=== PATIENT | female | born 1940 | race Caucasian/White ===

== ENCOUNTER 2024-12-05 11:32 | Emergency (ER) | payer MEDICARE, BC ==
[2024-12-05] MEDS ORDERED: Sodium Chloride 0.9% 10 ML Syringe FLUSH PRN (11:55)
[2024-12-05 12:00] LABS: BASOPHILS ABSOLUTE AUTO 0.03 K/uL (0.00-0.10); BASOPHILS PERCENT AUTO 0.5 % (0.1-1.3); EOSINOPHILS ABSOLUTE AUTO 0.22 K/uL (0.00-0.40); EOSINOPHILS PERCENT AUTO 3.5 % (0.0-5.4); HEMATOCRIT 40.2 % (34.3-46.0); HEMOGLOBIN 13.4 g/dL (11.2-15.5); IMMATURE GRAN ABSOLUTE AUTO 0.04 K/uL (0.00-0.23); IMMATURE GRAN PERCENT AUTO 0.6 % (0.0-0.7); LYMPHOCYTES ABSOLUTE AUTO 2.11 K/uL (0.8-3.3); LYMPHOCYTES PERCENT AUTO 33.2 % (11.4-47.7); MEAN CORPUSCULAR HEMOGLOBIN 30.6 pg (31.6-35.5); MEAN CORPUSCULAR HGB CONC 33.3 g/dL (31.6-35.5); MEAN CORPUSCULAR VOLUME 91.8 fL (81.4-99.0); MONOCYTES ABSOLUTE AUTO 0.67 K/uL (0.20-0.90); MONOCYTES PERCENT AUTO 10.5 % (3.3-12.6); NEUTROPHILS ABSOLUTE AUTO 3.29 K/uL (1.0-7.6); NEUTROPHILS PERCENT AUTO 51.7 % (40.0-78.1); PLATELET COUNT,PLT 190 K/uL (130-375); RED BLOOD CELL COUNT 4.38 M/uL (3.77-5.24); WHITE BLOOD CELL COUNT,WBC 6.4 K/uL (3.2-11.0)
[2024-12-05 12:24] LABS: ANION GAP 10.5 mmol/L (5.0-14.0); CALCIUM 9.5 mg/dL (8.5-10.1); CREATININE 0.6 mg/dL (0.6-1.0); EST CRCL DRUG DOSING (CG) 56.19 mL/min; TROPONIN I HIGH SENSITIVITY 10.5 pg/mL (<=60.3)
[2024-12-05] MEDS: Aspirin 81 MG Tab.Chew PO ONE (12:41)
[2024-12-05] MEDS: Nitroglycerin 0.4 MG Tab.SL SL PRN (12:42)
[2024-12-05] MEDS: Isosorbide Mononitrate 30 MG Tab.ER PO ONE (13:12)
[2024-12-05] MEDS: Metoprolol Succinate 25 MG Tab.ER PO ONE (13:14)
[2024-12-05] MEDS: Losartan 50 MG Tab PO ONE (14:44)
== END 2024-12-05 14:52 | disposition home or self-care (01) ==
LOC: JP.ED 11:32
DX: I10 Essential (primary) hypertension (principal); Z88.2 Allergy status to sulfonamides; Z88.8 Allergy status to other drugs, medicaments and biological substances; Z79.82 Long term (current) use of aspirin
CPT/HCPCS: 36415; 71046; 80048; 84484; 85025; 85730; 93005; 99285; A9270; 93010; 99283